=== PATIENT | female | born 1970 | race Caucasian/White ===

== ENCOUNTER 2018-04-16 15:21 | Emergency (ER) | payer BC ==
[~2018-04-16] VITALS: Ht 172.7 cm; Wt 136.4 kg
[~2018-04-16 15:21] MED LIST: AMOXICILLIN875 MG PO; MOTRIN800 MG OR; NEXIUM40 M1 PO; TYLENOL COL1 OR
[2018-04-16 18:24] VITALS: BP 131/83
== END 2018-04-16 18:24 | disposition home or self-care (01) | DRG 605 ==
LOC: ED 15:21
DX: S60.222A Contusion of left hand, initial encounter (principal); F17.290 Nicotine dependence, other tobacco product, uncomplicated; W22.8XXA Striking against or struck by other objects, initial encounter